=== PATIENT | female | born 1970 | race American Indian/Alaskan Native ===

== ENCOUNTER 2019-06-11 19:15 | Emergency (ER) | payer OTHER ==
[2019-06-11 19:27] VITALS: PULSE 84; TEMP 99.1; BMI 24.0
[2019-06-11] MEDS ORDERED: IBUPROFEN 400 MG TABLET (FP) PO ONE (19:30)
[2019-06-11] MEDS ORDERED: IBUPROFEN 600 MG TABLET (FP) PO ONE (19:34)
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
[2019-06-11 21:08] VITALS: BP 113/73
== END 2019-06-11 20:04 | disposition home or self-care (01) ==
LOC: FER 19:15
DX: M54.2 Cervicalgia (principal)
CPT/HCPCS: 99283-25